=== PATIENT | male | born 1975 | race Caucasian/White ===

== ENCOUNTER 2016-10-09 08:22 | Day surgery (SDC) | payer MEDICARE, OTHER, MEDICAID ==
[~2016-10-09] VITALS: Ht 167.6 cm; Wt 62.3 kg
[~2016-10-09 08:22] MED LIST: DEPAKOTE500 M1 PO
[2016-10-09 09:41] LABS: PH 5 (5-8); SQUAMOUS EPITHELIAL 0-2 /hpf; URINE APPEARANCE Clear; URINE BACTERIA Occasional /hpf; URINE BILIRUBIN Negative (NEGATIVE); URINE BLOOD Negative (NEGATIVE); URINE COLOR Yellow; URINE GLUCOSE Negative (NEGATIVE); URINE KETONE Trace (NEGATIVE); URINE UROBILINOGEN >=4.0 mg/dL (NEGATIVE); URINE WBC 0-2 /hpf
[2016-10-09 09:52] VITALS: BP 86/64; PULSE 77; TEMP 98
[2016-10-09] MEDS ORDERED: DEPAKOTE ER 50500 MG PO (09:55)
[2016-10-09] MEDS ORDERED: GLUCOPHAGE1000 MG PO (09:57)
[2016-10-09] MEDS ORDERED: VIMPAT100 MG PO (09:57)
[2016-10-09] MEDS ORDERED: ZOCOR 20MG20 MG PO (09:58)
[2016-10-09] MEDS ORDERED: ZESTRIL2.5 MG PO (09:59)
[2016-10-09 10:40] LABS: BASO % 0.5 % (0.0-2.0); EOS # 0.2 (0.0-0.7); EOS % 2.7 % (0-4.0); GRAN # 2.5 (1.4-6.5); GRAN % 40.8 % (42.2-75.2); HEMATOCRIT 40.5 % (42.0-52.0); HEMOGLOBIN 13.7 g/dl (13.5-18.0); LYMPH % 48.3 % (20.0-51.0); MEAN CELL VOLUME 85 fl (80.0-100.0); MEAN CORPUSCULAR HEMOGLOBIN 29 pg (27.0-31.0); MEAN CORPUSCULAR HGB CONC 34 g/dl (33.0-37.0); MEAN PLATELET VOLUME 10.1 fl (7.4-10.4); MONO # 0.5 (0.1-0.6); MONO % 7.5 % (1.7-9.3); PLATELET COUNT 188 K/mm3 (130-400); RED BLOOD COUNT 4.76 M/mm3 (4.20-5.60); REDCELL DISTRIBUTION WIDTH-CV 12.5 % (11.5-14.5); WHITE BLOOD COUNT 6.2 K/mm3 (4.8-10.8)
[2016-10-09 10:51] LABS: ADJUSTED CALCIUM 9.4 mg/dL (8.4-10.2); ALBUMIN 3.9 gm/dL (3.5-5.0); BILIRUBIN,TOTAL 0.6 mg/dL (0.0-1.0); CALCIUM 9.3 mg/dL (8.4-10.2); CREATININE, serum 0.52 mg/dL (0.66-1.25); POTASSIUM 4.2 mmol/L (3.4-5.0)
[2016-10-09 11:10] LABS: INR 1.1 (0.8-3.0); PARTIAL THROMBOPLASTIN TIME 36.7 SECONDS (26.0-37.0); PROTHROMBIN TIME 11.8 SECONDS (9.7-12.8)
[2016-10-09 13:35] VITALS: BP 133/83; PULSE 74; TEMP 97.4
[2016-10-09 13:50] VITALS: BP 125/81; PULSE 87
[2016-10-09 13:51] VITALS: BP 120/85; PULSE 82
== END 2016-10-09 14:40 | disposition home or self-care (01) ==
LOC: SDCO 08:22
PROVIDERS: Nurse Practitioner Family
DX: K02.9 Dental caries, unspecified (principal); E11.21 Type 2 diabetes mellitus with diabetic nephropathy; Z79.899 Other long term (current) drug therapy; E78.00 Pure hypercholesterolemia, unspecified; E78.5 Hyperlipidemia, unspecified; Z87.820 Personal history of traumatic brain injury; M47.817 Spondylosis without myelopathy or radiculopathy, lumbosacral region
CPT/HCPCS: J0461; J0690; J2250; J2405; J2704; J2710; J3010

== ENCOUNTER 2017-04-30 12:28 | Outpatient (RCR) | payer MEDICARE, OTHER, MEDICAID ==
[~2017-04-30 12:28] MED LIST changes: +DEPAKOTE ER 50500 MG PO; +GLUCOPHAGE1000 MG PO; +VIMPAT100 MG PO; +ZESTRIL2.5 MG PO; +ZOCOR 20MG20 MG PO
== END 2017-05-15 16:37 ==
LOC: WSPT 12:28
DX: R25.2 Cramp and spasm (principal)
CPT/HCPCS: G8978-GP; G8979-GP

== ENCOUNTER → 2017-12-15 | Outpatient (CLI) | payer MEDICARE, OTHER, MEDICAID ==
[2017-12-15 10:30] LABS: ALBUMIN 4.1 gm/dL (3.5-5.0); BILIRUBIN,TOTAL 0.4 mg/dL (0.0-1.0); CALCIUM 9.5 mg/dL (8.4-10.2); CHOLESTEROL RISK RATIO 3.3; CREATININE, serum 0.52 mg/dL (0.66-1.25); POTASSIUM 5.4 mmol/L (3.4-5.0); TOTAL PROTEIN 7.5 gm/dL (6.4-8.2)
== END ==
LOC: COL.LAB 09:41
PROVIDERS: Family Medicine
DX: R56.9 Unspecified convulsions (principal); E11.9 Type 2 diabetes mellitus without complications; R79.9 Abnormal finding of blood chemistry, unspecified; Z79.899 Other long term (current) drug therapy; G40.309 Generalized idiopathic epilepsy and epileptic syndromes, not intractable, without status epilepticus; I10 Essential (primary) hypertension

== ENCOUNTER 2018-07-01 13:58 | Outpatient (RCR) | payer MEDICARE, OTHER, MEDICAID | END 2018-09-29 | disposition home or self-care (01) | LOC: WSPT | DX: M25.562 Pain in left knee (principal); M25.561 Pain in right knee; G89.29 Other chronic pain; Z79.84 Long term (current) use of oral hypoglycemic drugs; Z79.899 Other long term (current) drug therapy | CPT/HCPCS: G8979-GP; G8980-GP ==

== ENCOUNTER 2022-03-01 10:08 | Emergency (ER) | payer MEDICARE, OTHER, MEDICAID ==
[~2022-03-01] VITALS: Ht 160 cm; Wt 55.9 kg
[2022-03-01 10:17] VITALS: TEMP 97.9
[2022-03-01 11:34] VITALS: BP 95/61; PULSE 85
== END 2022-03-01 11:34 | disposition home or self-care (01) ==
LOC: COL.ER 10:08
DX: R04.0 Epistaxis (principal); R51.9 Headache, unspecified

== ENCOUNTER 2023-09-25 09:24 | Outpatient (RCR) | payer MEDICARE, OTHER, MEDICAID | END 2023-10-07 | disposition home or self-care (01) | LOC: MKS.ESL.PT | DX: R27.0 Ataxia, unspecified (principal); R29.6 Repeated falls ==

== ENCOUNTER 2023-11-02 11:15 | Outpatient (RCR) | payer MEDICARE, OTHER, MEDICAID | END 2023-11-05 | disposition home or self-care (01) | LOC: MKS.ESL.PT | DX: R27.0 Ataxia, unspecified (principal); R29.6 Repeated falls ==

== ENCOUNTER 2024-05-31 13:30 | Outpatient (RCR) | payer MEDICARE, OTHER, MEDICAID | END 2024-06-06 | disposition home or self-care (01) | LOC: MKS.ESL.PT | DX: R27.0 Ataxia, unspecified (principal); R29.6 Repeated falls; R53.83 Other fatigue ==